=== PATIENT | female | born 1980 | race African-American/Black ===

== ENCOUNTER 2016-07-12 01:01 | Emergency (ER) | payer BC ==
[~2016-07-12] VITALS: Ht 149.9 cm; Wt 51.7 kg
--- NOTE | 2016-07-12 01:30 | NUR ---
To bed 8 a 36 yo femal bibself with c/o of sorethroat with cough and congestion since , worse today thus coming to er. Patient is aaox4, ambulatory. No s/s of acute distress. Breathing even and unlabored. Afebrile. Awaiting for er md vásquez.
[2016-07-12 02:39] VITALS: BP 108/79
--- NOTE | 2016-07-12 02:39 | NUR ---
Patient discharged to home in stable condition. Written and verbal after care instructions given. Patient verbalizes understanding of instruction. PT ambulatory with a steady gait VITAL SIGNS WITHIN NORMAL LIMITS.
== END 2016-07-12 02:40 | disposition home or self-care (01) ==
LOC: ER 01:02
DX: J06.9 Acute upper respiratory infection, unspecified (principal)
CPT/HCPCS: 99281; A4606; Z7610; Z7502

== ENCOUNTER 2017-06-02 22:44 | Emergency (ER) | payer BC ==
[~2017-06-02] VITALS: Ht 149.9 cm; Wt 51.7 kg
--- NOTE | 2017-06-02 23:32 | NUR ---
PT BIBSELF PT STATES "SAW BLOOD BEFORE I URINATED AND THEN WHEN I WIPED IT WAS MORE BLOOD; BEEN ALSO HAVING LOWER ABD PRESSURE TODAY. AM " PT AOX3 RR EVEN AND UNLABORED. NO SOB NOTED. NAD NOTED. NO NVD AT THIS TIME. PT GOWNED AND PLACED ON MONITOR WAITING FOR MD TARIQ.
--- NOTE | 2017-06-02 23:34 | NUR ---
LAB CALLED FOR BLOOD DRAW
--- NOTE | 2017-06-02 23:37 | NUR ---
LAB AT BEDSIDE FOR BLOOD DRAW.
[2017-06-02 23:54] LABS: BASOPHILS % (AUTO) 0.4 % (0.0-2.0); EOSINOPHILS # (AUTO) 0.6 /CMM (0.0-0.7); EOSINOPHILS % (AUTO) 6.7 % (0.0-6.0); HEMATOCRIT 37 % (33-45); HEMOGLOBIN 12.4 g/dL (11.5-14.8); LYMPHOCYTES # (AUTO) 1.7 /CMM (0.8-4.8); LYMPHOCYTES % (AUTO) 18.8 % (20.0-44.0); MEAN CORPUSCULAR HEMOGLOBIN 29 PG (26.0-33.0); MEAN CORPUSCULAR HGB CONC 34 g/dl (31.0-36.0); MEAN CORPUSCULAR VOLUME 85 fL (82-100); MONOCYTES # (AUTO) 1.4 /CMM (0.1-1.30); MONOCYTES % (AUTO) 15.1 % (2.0-12.0); NEUTROPHILS # (AUTO) 5.4 /CMM (1.8-8.9); PLATELET COUNT (AUTO) 336 /CMM (150-450); RDW COEFFICIENT OF VARIATION 16.8 (11.5-15.0); RED BLOOD CELL COUNT(AUTO) 4.31 MIL/uL (4.0-5.2); WHITE BLOOD COUNT (AUTO) 9.1 K/uL (4.3-11.0)
[2017-06-02 23:57] LABS: APPEARANCE,URINE CLEAR (CLEAR); BILIRUBIN,URINE NEGATIVE (NEGATIVE); BLOOD, URINE 2+ Ery/uL (NEGATIVE); COLOR,URINE YELLOW (YELLOW); KETONES,URINE NEGATIVE (NEGATIVE); LEUKOCYTE ESTERASE ,URINE NEGATIVE (NEGATIVE); NITRITE, URINE NEGATIVE (NEGATIVE); PROTEIN,URINE NEGATIVE (NEGATIVE); UGLUCOSE NEGATIVE (NEGATIVE); UROBILINOGEN,URINE 0.2 EU/dL (0.2)
--- NOTE | 2017-06-03 00:03 | NUR ---
PREM AT BEDSIDE
[2017-06-03 00:06] LABS: BACTERIA,URINE Few /HPF (None Seen); SQUAMOUS EPITHELIAL CELL,UR Many /HPF (None Seen); WBC,URINE 0-2 /HPF (0-3)
[2017-06-03 00:25] LABS: CALCIUM, SERUM 9.4 mg/dL (8.5-10.1); CREATININE 0.6 mg/dL (0.6-1.3)
--- NOTE | 2017-06-03 01:17 | NUR ---
Patient discharged to home in stable condition. Written and verbal after care instructions given. Patient verbalizes understanding of instruction. Ambulatory with a steady gait.
[2017-06-03 01:18] VITALS: BP 127/78
== END 2017-06-03 01:20 | disposition home or self-care (01) ==
LOC: EDBD → ER 22:45 → EDBD 22:45 → ER 06-03 01:20
DX: O20.0 Threatened abortion (principal)
CPT/HCPCS: 36415; 76856; 80048; 81001; 84702; 84703; 85025; 99285; A4606; Z7610; 81000-TC

== ENCOUNTER → 2017-06-06 | Emergency (ER) | payer BC ==
[~2017-06-06] VITALS: Ht 149.9 cm; Wt 54.4 kg
[2017-06-06 09:22] VITALS: BP 106/74
[2017-06-06 09:53] LABS: BASOPHILS # (AUTO) 0.1 /CMM (0.0-0.2); BASOPHILS % (AUTO) 0.6 % (0.0-2.0); EOSINOPHILS # (AUTO) 0.4 /CMM (0.0-0.7); EOSINOPHILS % (AUTO) 4.8 % (0.0-6.0); HEMATOCRIT 33 % (33-45); LYMPHOCYTES # (AUTO) 1.3 /CMM (0.8-4.8); LYMPHOCYTES % (AUTO) 16.1 % (20.0-44.0); MEAN CORPUSCULAR HEMOGLOBIN 28 PG (26.0-33.0); MEAN CORPUSCULAR HGB CONC 34 g/dl (31.0-36.0); MEAN CORPUSCULAR VOLUME 84 fL (82-100); MONOCYTES % (AUTO) 11.9 % (2.0-12.0); NEUTROPHILS # (AUTO) 5.5 /CMM (1.8-8.9); NEUTROPHILS % (AUTO) 66.6 % (43.0-81.0); PLATELET COUNT (AUTO) 321 /CMM (150-450); RDW COEFFICIENT OF VARIATION 16.4 (11.5-15.0); RED BLOOD CELL COUNT(AUTO) 3.87 MIL/uL (4.0-5.2); WHITE BLOOD COUNT (AUTO) 8.2 K/uL (4.3-11.0)
[2017-06-06 10:08] LABS: CALCIUM, SERUM 8.4 mg/dL (8.5-10.1); CREATININE 0.6 mg/dL (0.6-1.3)
== END | disposition home or self-care (01) ==
LOC: ER 09:13
DX: O20.0 Threatened abortion (principal)
CPT/HCPCS: 36415; 76856; 80048; 84702; 85025; 99285; A4606; Z7610